=== PATIENT | female | born 1970 | race Caucasian/White ===

== ENCOUNTER 2016-12-27 14:35 | Emergency (ER) | payer BC ==
[2016-12-27 15:18] VITALS: BP 122/66
--- NOTE | 2016-12-27 16:18 | UC ---
Lower Extremity/Ankle HPI - History of Current Complaint Chief Complaint: UCLowerExtremity Stated Complaint: LEFT ANKLE INJURY/PAIN Time Seen by Provider: 12/27/16 16:10 Hx Obtained From: Patient Hx Last Menstrual Period: 2006 ?: No Onset/Duration: Sudden Onset - Hit in the ankle with a baseball, Lasting Weeks - 3, Still Present Severity Initially: Mild Severity Currently: Moderate Aggravating Factor(s): Standing Alleviating Factor(s): Rest Able to Bear Weight: Yes - Risk Factors Gout Risk Factors: Negative DVT Risk Factors: Recent Trauma Septic Arthritis Risk Factor: Negative - Allergies/Home Medications Allergies/Adverse Reactions: Allergies Allergy/AdvReac Type Severity Reaction Status Date / Time No Known Allergies Allergy Verified 12/27/16 15:18 PMH/Surg Hx/FS Hx/Imm Hx Endocrine History: Dyslipidemia Cardiovascular History: Cardiac Disease, Hypertension - Surgical History Surgical History: Yes Surgery Procedure, Year, and Place: RCA stent 2006, 1 - Family History Known Family History: Positive: Cardiac Disease, Hypertension - Social History Occupation: Employed Full-time Lives: With Family Alcohol Use: Rare Substance Use Type: None Smoking Status (MU): Former Smoker Have You Smoked in the Last Year: No Review of Systems Musculoskeletal: Arthralgia - left ankle All Other Systems Reviewed And Are Negative: Yes Physical Exam Triage Information Reviewed: Yes Appearance: Well-Appearing, No Pain Distress, Well-Nourished Vital Signs: Initial Vital Signs Temp 98.6 F 12/27/16 15:11 Pulse 72 12/27/16 15:11 Resp 16 12/27/16 15:11 BP 122/66 12/27/16 15:11 Pulse Ox 98 12/27/16 15:11 Eyes: Positive: Conjunctiva Clear Neck exam: Normal Respiratory Exam: Normal Cardiovascular Exam: Normal Musculoskeletal: Positive: Edema @ - Left ankle, Other: - Tenderness on the medial malleolus Neurological: Positive: Other: - Hypersensitivity to sharp sensation left medial ankle onto the foot. Psychological Exam: Normal Skin Exam: Normal Lower Extremity Course/Dx - Differential Dx/Diagnosis Differential Diagnosis/HQI/PQRI: Arthritis, Contusion, Sprain, Strain Provider Diagnoses: Contusion left ankle. Nerve contusion, neuritis Discharge - Discharge Plan Condition: Stable Disposition: HOME Patient Education Materials: Contusion in Adults (ED), Foot Contusion (ED) Additional Instructions: The nerve injury/ bruise may take up to 2 months to heal.
--- NOTE | 2016-12-27 16:40 | RAD ---
HISTORY: Trauma, medial malleolus pain COMPARISONS: August 23, 2009 VIEWS: 3, Frontal, lateral, and oblique views of the left ankle FINDINGS: BONE DENSITY: Normal. BONES: There is no displaced fracture. There is calcaneal enthesophyte. JOINTS: There is no arthropathy. ALIGNMENT: There is no dislocation. SOFT TISSUES: There is circumferential soft tissue swelling OTHER FINDINGS: None. IMPRESSION: SOFT TISSUE SWELLING. NO ACUTE OSSEOUS INJURY. IF SYMPTOMS PERSIST, RECOMMEND REPEAT IMAGING.
== END 2016-12-27 16:45 | disposition home or self-care (01) ==
LOC: UCCORT 14:35
DX: S90.02XA Contusion of left ankle, initial encounter (principal); W21.03XA Struck by baseball, initial encounter; Y92.9 Unspecified place or not applicable; S94.92XA Injury of unspecified nerve at ankle and foot level, left leg, initial encounter; G58.8 Other specified mononeuropathies; Z87.891 Personal history of nicotine dependence; I11.9 Hypertensive heart disease without heart failure; I51.9 Heart disease, unspecified
CPT/HCPCS: 99211; G0463

== ENCOUNTER 2019-08-23 18:31 | Emergency (ER) | payer BC ==
[2019-08-23 19:01] VITALS: BP 102/72
--- NOTE | 2019-08-23 19:48 | UC ---
Throat Pain/Nasal Vick HPI - HPI Summary HPI Summary: 48 y/o female presents to the urgent care c/o LEFT-side sinus pain x3 days. No fever. Sinus pressure and runny nose x1 week. Taking tylenol prn. Also c/o LEFT ankle pain on/off since last December 2018. Pain worse w/ strenous activity. - History of Current Complaint Chief Complaint: UCRespiratory Stated Complaint: SINUS Time Seen by Provider: 08/23/19 19:46 Hx Obtained From: Patient Hx Last Menstrual Period: 2006 Onset/Duration: Gradual Onset, Lasting Days Pain Intensity: 5 - Allergies/Home Medications Allergies/Adverse Reactions: Allergies Allergy/AdvReac Type Severity Reaction Status Date / Time No Known Allergies Allergy Verified 08/23/19 18:56 Home Medications: Home Medications Atorvastatin* [Lipitor 10 MG*] 40 mg PO 1700 11/18/15 [History Confirmed ] Metoprolol Succinate [Toprol Xl] 12.5 mg PO BID 11/18/15 [History Confirmed 10/08] Albuterol HFA INHALER* [Ventolin HFA Inhaler*] 1 - 2 puff INH Q4H PRN #1 mdi [Rx Confirmed 08/23/19] Ramipril CAP* [Altace CAP*] 1.25 mg PO DAILY 06/19/16 [History Confirmed ] Amoxicillin PO (*) [Amoxicillin 875 MG (*)] 875 mg PO BID #20 tab 08/23/19 [Rx] Aspirin EC TAB* [Ecotrin EC Low Dose 81 MG*] 1 tab DAILY 08/23/19 [History Confirmed 08/23/19] Carbamide Peroxide 6.5% OTIC* [DEBROX 6.5% Otic*] 5 drop LEFT EAR BID #1 bottle 08/23/19 [Rx] Ezetimibe TAB* [Zetia TAB*] 1 tab DAILY 08/23/19 [History Confirmed 08/23/19] Fluticasone NASAL SPRAY 50MCG* [Flonase NASAL SPRAY 50MCG*] 2 spray BOTH NARES DAILY #1 btl 08/23/19 [Rx] Pantoprazole TAB * [Protonix TAB*] 1 tab DAILY 08/23/19 [History Confirmed 08/22] PMH/Surg Hx/FS Hx/Imm Hx - Surgical History Surgical History: Yes Surgery Procedure, Year, and Place: RCA stent 2006, 1 - Family History Known Family History: Positive: Cardiac Disease, Hypertension - Social History Alcohol Use: Rare Substance Use Type: None Smoking Status (MU): Former Smoker Have You Smoked in the Last Year: No Physical Exam Vital Signs: Initial Vital Signs Temp 97.7 F 08/23/19 18:58 Pulse 54 08/23/19 18:58 Resp 16 08/23/19 18:58 BP 102/72 08/23/19 18:58 Pulse Ox 99 08/23/19 18:58 Throat Pain/Nasal Course/Dx - Course Course Of Treatment: Pt with 2 weeks of symptoms getting worse. Pt Rx Amoxicillin PO and flonase nasal spray. Discharge instructions explained to Pt. Advised to Return to the clinic or PCP if symptoms do not improve.Pt understood and agreed with plan of care. - Differential Dx/Diagnosis Differential Diagnosis/HQI/PQRI: Influenza, Laryngitis, Mononucleosis, Pharyngitis, Sinusitis, Tonsillitis, URI Provider Diagnosis: Acute bacterial sinusitis, Left ankle pain, Left ankle tendonitis, Bone spur of left ankle, Impacted cerumen of both ears, Left otitis media Discharge ED - Sign-Out/Discharge Documenting (check all that apply): Patient Departure - D/c home All imaging exams completed and their final reports reviewed: No - Discharge Plan Condition: Stable Disposition: HOME Prescriptions: Amoxicillin PO (*) [Amoxicillin 875 MG (*)] 875 mg PO BID #20 tab Fluticasone NASAL SPRAY 50MCG* [Flonase NASAL SPRAY 50MCG*] 2 spray BOTH NARES DAILY #1 btl Patient Education Materials: Tendinitis (ED), Ear Infection (ED) Referrals: Montana Power MD [Primary Care Provider] - 3 Days Ibrahima Vargas MD [Medical Doctor] - If Needed Shayan Avila MD [Medical Doctor] - 3 Days Additional Instructions: 1- Please increase fluid intake and rest. take full course of antibiotics to avoid resistance. Take yogurts w/ probiotics or Culturelle to protect your GI system 2-Use Flonase as directed to help drain fluid. Also buy saline drops to clear sinuses 3-Continue taking Tylenol PO q6hrs prn to alleviates sinus pain and ankle pain 4-Please f/u w/ your PCP or ENT DR Vargas if symptoms do not improve for further management and treatment 5-Please apply ice, keep your ankle immobilized with the Gel splint. Elevate your ankle, avoid standing for long period of time. Final radiology report will be done tomorrow, you will be notified of any abnormality 6- Please f/u with [facility] in 2-3 days for further evaluation and treatment on your chronic ankle pain as explained for further management. - Billing Disposition and Condition Condition: STABLE Disposition: Home
[2019-08-23] MEDS ORDERED: Amoxicillin PO (*) 500 MG CAP PO ONE (21:00)
--- NOTE | 2019-08-24 10:21 | UC ---
- Progress Note Progress Note: No change in initial management - EKG/XRAY/CT XRAY: ankle - no fracture. Soft tissue swelling over lateral malleolus small bone spur noted Course/Dx - Diagnoses Provider Diagnoses: Acute bacterial sinusitis, Left ankle pain, Left ankle tendonitis, Bone spur of left ankle, Impacted cerumen of both ears, Left otitis media Discharge ED - Sign-Out/Discharge Documenting (check all that apply): Post-Discharge Follow Up All imaging exams completed and their final reports reviewed: Yes - Discharge Plan Condition: Stable Disposition: HOME Prescriptions: Amoxicillin PO (*) [Amoxicillin 875 MG (*)] 875 mg PO BID #20 tab Carbamide Peroxide 6.5% OTIC* [DEBROX 6.5% Otic*] 5 drop LEFT EAR BID #1 bottle Fluticasone NASAL SPRAY 50MCG* [Flonase NASAL SPRAY 50MCG*] 2 spray BOTH NARES DAILY #1 btl Patient Education Materials: Ear Infection (ED), Tendinitis (ED) Referrals: Montana Power MD [Primary Care Provider] - 3 Days Shayan Avila MD [Medical Doctor] - 3 Days Ibrahima Vargas MD [Medical Doctor] - If Needed Additional Instructions: 1- Please increase fluid intake and rest. take full course of antibiotics to avoid resistance. Take yogurts w/ probiotics or Culturelle to protect your GI system 2-Use Flonase as directed to help drain fluid. Also buy saline drops to clear sinuses 3-Continue taking Tylenol PO q6hrs prn to alleviates sinus pain and ankle pain 4-Please f/u w/ your PCP or ENT DR Vargas if symptoms do not improve for further management and treatment 5-Please apply ice, keep your ankle immobilized with the Gel splint. Elevate your ankle, avoid standing for long period of time. Final radiology report will be done tomorrow, you will be notified of any abnormality 6- Please f/u with [facility] in 2-3 days for further evaluation and treatment on your chronic ankle pain as explained for further management. 7- Apply Debrox otic drops on left ear canal as directed since you still have mild cerumen there - Billing Disposition and Condition Condition: STABLE Disposition: Home
== END 2019-08-23 21:30 | disposition home or self-care (01) ==
LOC: UCCORT 18:31
DX: J01.90 Acute sinusitis, unspecified (principal); B96.89 Other specified bacterial agents as the cause of diseases classified elsewhere; M77.32 Calcaneal spur, left foot; M25.572 Pain in left ankle and joints of left foot; H66.92 Otitis media, unspecified, left ear; H61.23 Impacted cerumen, bilateral; Z87.891 Personal history of nicotine dependence
CPT/HCPCS: 99213; A9270-GY; G0463